=== PATIENT | male | born 1950 | race American Indian/Alaskan Native ===

== ENCOUNTER 2019-05-28 12:57 | Outpatient (CLI) | payer MEDICARE ==
--- NOTE | 2019-05-28 18:44 | Vascular Lab Report ---
DUPLEX DOPPLER LOWER EXTREMITY VEINS, BILATERAL INDICATION / CLINICAL INFORMATION: B FOOT/LEG SWELLING. TECHNIQUE: Duplex doppler imaging was performed through the veins of both lower extremities using venous sole jennie and other maneuvers. COMPARISON: None available. FINDINGS: Right Common Femoral vein: Negative. Right Femoral vein: Negative. Right Popliteal vein: Negative. Right Calf veins: Negative. Left Common Femoral vein: Negative. Left Femoral vein: Negative. Left Popliteal vein: Negative. Left Calf veins: Negative. Additional findings: None. IMPRESSION: No sonographic evidence for DVT in either lower extremity. Signer Name: Richy Bajwa MD Signed: 05/28/2019 6:40 PM Workstation Name: [id number]
--- NOTE | 2019-05-28 19:54 | Vascular Lab Report ---
ULTRASOUND LOWER EXTREMITY ARTERIAL DOPPLER BILATERAL INDICATION: Bilateral feet and leg swelling and pain. COMPARISON: None. FINDINGS: Right Leg: Arteries of the right lower extremity are patent. Normal multiphasic waveforms are presen t. Arterial Systolic Velocities (cm/sec): MILK TESTER = 97 SFA proximal = 93 SFA mid = 93 SFA distal = 67 Popliteal = 50 Posterior tibial = 154 Dorsalis pedis = 38 Left Leg: Arteries of the right lower extremity are patent. Normal multiphasic waveforms are presen t. Arterial Systolic Velocities (cm/sec): MILK TESTER = 85 SFA proximal = 118 SFA mid = 96 SFA distal = 74 Popliteal = 59 Posterior tibial = 75 Dorsalis pedis = 81 IMPRESSION: 1. No hemodynamically significant arterial stenosis in either lower extremity. Signer Name: Charla Bhat MD Signed: 05/28/2019 7:50 PM Workstation Name: [id number]
== END 2019-05-28 12:58 | disposition home or self-care (01) ==
LOC: VAS 12:57
PROVIDERS: ATTEND Internal Medicine
DX: R60.0 Localized edema (principal)
CPT/HCPCS: 93925; 93970

== ENCOUNTER 2019-12-03 13:49 | Outpatient (CLI) | payer MEDICARE ==
[2019-12-03 14:54] LABS: Hematocrit 35.6 % (35.5-45.6); Hemoglobin 11.8 gm/dl (11.8-15.2); Mean Corpuscular HGB Conc 33 % (32-34); Mean Corpuscular Volume 91 fl (84-94); Platelet Count 227 K/mm3 (140-440); Red Blood Count 3.91 M/mm3 (3.65-5.03); Red Cell Distribution Width 13.7 % (13.2-15.2)
[2019-12-03 14:58] LABS: Alanine Aminotransferase 11 units/L (7-56); Albumin 4.2 g/dL (3.9-5); BUN/Creatinine Ratio 11; Blood Urea Nitrogen 11 mg/dL (9-20); Calcium 9.5 mg/dL (8.4-10.2); Hemolysis Index 1
== END 2019-12-03 13:50 | disposition home or self-care (01) ==
LOC: LAB 13:49
PROVIDERS: ATTEND Specialist
DX: E11.42 Type 2 diabetes mellitus with diabetic polyneuropathy (principal); G62.9 Polyneuropathy, unspecified; G95.9 Disease of spinal cord, unspecified
CPT/HCPCS: 36415; 80053; 82306; 82607; 83921; 84443; 85027; 86592; 86593; 86780

== ENCOUNTER 2021-08-08 21:29 | Emergency (ER) | payer MEDICARE, BC ==
[2021-08-08] MEDS ORDERED: MIDAZOLAM 2 MG/2 ML INJ IV ONE (22:42)
--- NOTE | 2021-08-08 22:46 | Emergency Department Report ---
ED General Adult HPI - General Chief complaint: Neuro Symptoms/Deficit Stated complaint: medical clearance Time Seen by Provider: 08/08/21 22:23 Source: patient, EMS ( EMS documentation not available at time of chart dictation ), RN notes reviewed, old records reviewed Mode of arrival: Stretcher Limitations: Other (Patient is awake but not speaking to myself.) - History of Present Illness Initial comments: This patient is a 70-year-old gentleman. His primary care doctor is Dr. Martinez. He is currently a full CODE STATUS, and has a history of diabetes, and possible psychiatric disease. His usual mental status is documented as being alert, disoriented, but cannot follow simple commands. In terms of his activities of daily living, he requires assistance with bathing, dressing, toileting, and eating. He is reportedly independent to transfer. He is also documented as being incontinent of bladder and bowel function. He is not currently on enteral tube feeds. The patient is referred to the emergency room because he is awake, having chronic tremors, but not talking. In the emergency room, the patient is awake, but will not talk to me. The patient follows commands. The patient makes no indication that he is having any physical pain at this time. Current medications include Risperdal, and melatonin. The patient does not describe the qualitative nature of his symptoms, exacerbating factors relieving factors or aggravating factors. The patient is not currently accompanied by friends or family at this time for collateral information. called up [facility], and spoke to RN Monty [phone] she states patient is new to her facility for the past 3-4 days. the patient apparently has developed new onset tremors and has stopped speaking. family called residential and indicated that patient is supposed to be on a number of psychiatric medications, but the [facility] is not able to provide me a list of medications. 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 He further reports that this patient's medications were changed, but he does not know which medications were started. He further stated to the nursing care team as the patient is residential that if the patient was not resumed on his psychiatric medications, that he would likely have a psychiatric decompensation. He will attempt to send me the patient's list of prior medications prior to going to [facility] prior medications include: citalopram 20 mg q day januvia 100 mg q day valproic acid 500 mg bid buproprion 300 mg q day bentropine 1 mg qhs risperdal 3 mg qhs gabapentin 800 mg qhs -: unknown - Related Data Allergies Allergy/AdvReac Type Severity Reaction Status Date / Time No Known Allergies Allergy Unverified 05/28/19 12:57 ED Review of Systems ROS: Stated complaint: AMS Other details as noted in HPI Comment: Unobtainable due to pts medical conditions ED Physical Exam - General Limitations: Other (Patient is awake but not talk) General appearance: in no apparent distress - Head Head exam: Present: atraumatic, normocephalic - Eye Eye exam: Present: normal appearance, PERRL, EOMI - ENT ENT exam: Present: normal exam, normal orophraynx, mucous membranes moist, normal external ear exam - Neck Neck exam: Present: normal inspection, full ROM. Absent: tenderness, meningismus - Respiratory Respiratory exam: Present: normal lung sounds bilaterally. Absent: respiratory distress, wheezes, rales, rhonchi, stridor, decreased breath sounds - Cardiovascular Cardiovascular Exam: Present: regular rate, normal rhythm, normal heart sounds. Absent: bradycardia, tachycardia, irregular rhythm, systolic murmur, diastolic murmur, rubs, gallop - GI/Abdominal GI/Abdominal exam: Present: soft. Absent: distended, tenderness, guarding, rebound, rigid, pulsatile mass - Rectal Rectal exam: Present: deferred - Extremities Exam Extremities exam: Present: normal inspection, full ROM, pedal edema (1+ edema in the bilateral lower extremities. Chronic venous stasis changes noted.), other (2+ pulses noted in the bilateral upper and lower extremities. There is no palpable cord. negative Homans sign. Muscular compartments are soft. The pelvis is stable.). Absent: calf tenderness - Back Exam Back exam: Present: normal inspection - Neurological Exam Neurological exam: Present: alert, other (There is no facial droop. EOMI. Active tremors are noted. No seizures are noted.) - Psychiatric Psychiatric exam: Present: other (Patient is nonverbal) - Skin Skin exam: Present: warm, dry, intact, normal color. Absent: rash ED Course Vital Signs 08/08/21 08/08/21 08/08/21 22:05 22:16 22:30 Temperature 98.5 F Pulse Rate 94 H 92 H 90 Respiratory 13 16 10 L Rate Blood Pressure 158/57 158/57 Blood Pressure 171/58 [Left] O2 Sat by Pulse 96 100 100 Oximetry 08/08/21 08/08/21 08/08/21 22:46 23:00 23:31 Temperature Pulse Rate 89 81 Respiratory 17 11 L Rate Blood Pressure 175/67 141/78 141/78 Blood Pressure [Left] O2 Sat by Pulse 100 97 100 Oximetry 08/08/21 08/09/21 08/09/21 23:46 00:00 00:16 Temperature Pulse Rate 78 Respiratory 12 Rate Blood Pressure 141/78 141/78 141/78 Blood Pressure [Left] O2 Sat by Pulse 100 100 100 Oximetry 08/09/21 08/09/21 00:30 00:46 Temperature Pulse Rate 78 74 Respiratory 14 15 Rate Blood Pressure 141/78 141/78 Blood Pressure [Left] O2 Sat by Pulse 100 100 Oximetry - Reevaluation(s) Reevaluation #1: 08/08/21 23:51 Differential diagnosis, including not limited to: Dementia with psychotic features, intracranial hemorrhage, pneumonia, thyroid derangement, electrolyte derangement Assessment and plan: 70-year-old gentleman, who was afebrile, with reassuring vital signs, with tremors, not actively vomiting, moving 4 extremities, 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 Laboratory studies are nonactionable. EKG, chest x-ray, urinalysis unremarkable. Probably awaiting psychiatric consultation. COVID swab ordered i n anticipation of psychiatric placement and disposition. Currently awaiting for brother to transmits pre-[facility] medications. At this point in time, this patient does not appear to have an immediate medical contraindication to psychiatric admission, evaluation, consultation and placement. Reevaluation #2: 08/09/21 02:03 Resting comfortably in stretcher. No acute distress. ED Medical Decision Making - Lab Data Result diagrams: 08/08/21 23:00 08/08/21 23:00 Vital Signs 08/08/21 22:05 Temperature 98.5 F Pulse Rate 94 H Respiratory 13 Rate Blood Pressure 171/58 [Left] O2 Sat by Pulse 96 Oximetry Lab Results 08/08/21 08/08/21 08/08/21 Range/Units 23:00 23:00 23:00 WBC 4.5 (4.5-11.0) K/mm3 RBC 3.50 L (3.65-5.03) M/mm3 Hgb 10.1 L (11.8-15.2) gm/dl Hct 30.6 L (35.5-45.6) % MCV 87 (84-94) fl MCH 29 (28-32) pg MCHC 33 (32-34) % RDW 14.6 (13.2-15.2) % Plt Count 420 (140-440) K/mm3 PT 13.3 (12.2-14.9) Sec. INR 0.92 (0.87-1.13) Urine Bilirubin (Negative) Urine RBC (Auto) (0.0-6.0) /HPF Plasma/Serum Alcohol < 0.01 (0-0.07) % 08/08/21 Range/Units Unknown WBC (4.5-11.0) K/mm3 RBC (3.65-5.03) M/mm3 Hgb (11.8-15.2) gm/dl Hct (35.5-45.6) % MCV (84-94) fl MCH (28-32) pg MCHC (32-34) % RDW (13.2-15.2) % Plt Count (140-440) K/mm3 PT (12.2-14.9) Sec. INR (0.87-1.13) Urine Bilirubin Neg (Negative) Urine RBC (Auto) < 1.0 (0.0-6.0) /HPF Plasma/Serum Alcohol (0-0.07) % Lab Results 08/08/21 08/08/21 08/08/21 Range/Units 23:00 23:00 23:00 WBC 4.5 (4.5-11.0) K/mm3 RBC 3.50 L (3.65-5.03) M/mm3 Hgb 10.1 L (11.8-15.2) gm/dl Hct 30.6 L (35.5-45.6) % MCV 87 (84-94) fl MCH 29 (28-32) pg MCHC 33 (32-34) % RDW 14.6 (13.2-15.2) % Plt Count 420 (140-440) K/mm3 PT 13.3 (12.2-14.9) Sec. INR 0.92 (0.87-1.13) Sodium 133 L (137-145) mmol/L Potassium 4.0 (3.6-5.0) mmol/L Chloride 96.4 L (98-107) mmol/L Carbon Dioxide 25 (22-30) mmol/L Anion Gap 16 mmol/L BUN 13 (9-20) mg/dL Creatinine 0.8 (0.8-1.3) mg/dL Estimated GFR > 60 ml/min BUN/Creatinine Ratio 16 % Glucose 154 H (75-100) mg/dL Calcium 9.0 (8.4-10.2) mg/dL Magnesium 1.90 (1.7-2.3) mg/dL Total Bilirubin 0.30 (0.1-1.2) mg/dL AST 16 (5-40) units/L ALT 16 (7-56) units/L Alkaline Phosphatase 93 (35-129) units/L Ammonia (25-60) umol/L Total Creatine Kinase 96 (55-170) units/L Troponin T < 0.010 (0.00-0.029) ng/mL Total Protein 7.0 (6.3-8.2) g/dL Albumin 3.9 (3.9-5) g/dL Albumin/Globulin Ratio 1.3 % TSH (0.270-4.200) mlU/mL Urine Color (Yellow) Urine Turbidity (Clear) Urine pH (5.0-7.0) Ur Specific [place] (1.003-1.030) Urine Protein (Negative) mg/dL Urine Glucose (UA) (Negative) mg/dL Urine Ketones (Negative) mg/dL Urine Blood (Negative) Urine Nitrite (Negative) Urine Bilirubin (Negative) Urine Urobilinogen (<2.0) mg/dL Ur Leukocyte Esterase (Negative) Urine WBC (Auto) (0.0-6.0) /HPF Urine RBC (Auto) (0.0-6.0) /HPF Salicylates (2.8-20.0) mg/dL Urine Opiates Screen Urine Methadone Screen Acetaminophen (10.0-30.0) ug/mL Ur Barbiturates Screen Ur Phencyclidine Scrn Ur Amphetamines Screen U Benzodiazepines Scrn Urine Cocaine Screen U Marijuana (THC) Screen Drugs of Abuse Note Plasma/Serum Alcohol (0-0.07) % Blood Type 08/08/21 08/08/21 08/08/21 Range/Units 23:00 23:00 23:00 WBC (4.5-11.0) K/mm3 RBC (3.65-5.03) M/mm3 Hgb (11.8-15.2) gm/dl Hct (35.5-45.6) % MCV (84-94) fl MCH (28-32) pg MCHC (32-34) % RDW (13.2-15.2) % Plt Count (140-440) K/mm3 PT (12.2-14.9) Sec. INR (0.87-1.13) Sodium (137-145) mmol/L Potassium (3.6-5.0) mmol/L Chloride (98-107) mmol/L Carbon Dioxide (22-30) mmol/L Anion Gap mmol/L BUN (9-20) mg/dL Creatinine (0.8-1.3) mg/dL Estimated GFR ml/min BUN/Creatinine Ratio % Glucose (75-100) mg/dL Calcium (8.4-10.2) mg/dL Magnesium (1.7-2.3) mg/dL Total Bilirubin (0.1-1.2) mg/dL AST (5-40) units/L ALT (7-56) units/L Alkaline Phosphatase (35-129) units/L Ammonia 26.0 (25-60) umol/L Total Creatine Kinase (55-170) units/L Troponin T (0.00-0.029) ng/mL Total Protein (6.3-8.2) g/dL Albumin (3.9-5) g/dL Albumin/Globulin Ratio % TSH 2.560 (0.270-4.200) mlU/mL Urine Color (Yellow) Urine Turbidity (Clear) Urine pH (5.0-7.0) Ur Specific [place] (1.003-1.030) Urine Protein (Negative) mg/dL Urine Glucose (UA) (Negative) mg/dL Urine Ketones (Negative) mg/dL Urine Blood (Negative) Urine Nitrite (Negative) Urine Bilirubin (Negative) Urine Urobilinogen (<2.0) mg/dL Ur Leukocyte Esterase (Negative) Urine WBC (Auto) (0.0-6.0) /HPF Urine RBC (Auto) (0.0-6.0) /HPF Salicylates < 0.3 L (2.8-20.0) mg/dL Urine Opiates Screen Urine Methadone Screen Acetaminophen (10.0-30.0) ug/mL Ur Barbiturates Screen Ur Phencyclidine Scrn Ur Amphetamines Screen U Benzodiazepines Scrn Urine Cocaine Screen U Marijuana (THC) Screen Drugs of Abuse Note Plasma/Serum Alcohol (0-0.07) % Blood Type 08/08/21 08/08/21 08/08/21 Range/Units 23:00 23:00 23:00 WBC (4.5-11.0) K/mm3 RBC (3.65-5.03) M/mm3 Hgb (11.8-15.2) gm/dl Hct (35.5-45.6) % MCV (84-94) fl MCH (28-32) pg MCHC (32-34) % RDW (13.2-15.2) % Plt Count (140-440) K/mm3 PT (12.2-14.9) Sec. INR (0.87-1.13) Sodium (137-145) mmol/L Potassium (3.6-5.0) mmol/L Chloride (98-107) mmol/L Carbon Dioxide (22-30) mmol/L Anion Gap mmol/L BUN (9-20) mg/dL Creatinine (0.8-1.3) mg/dL Estimated GFR ml/min BUN/Creatinine Ratio % Glucose (75-100) mg/dL Calcium (8.4-10.2) mg/dL Magnesium (1.7-2.3) mg/dL Total Bilirubin (0.1-1.2) mg/dL AST (5-40) units/L ALT (7-56) units/L Alkaline Phosphatase (35-129) units/L Ammonia (25-60) umol/L Total Creatine Kinase (55-170) units/L Troponin T (0.00-0.029) ng/mL Total Protein (6.3-8.2) g/dL Albumin (3.9-5) g/dL Albumin/Globulin Ratio % TSH (0.270-4.200) mlU/mL Urine Color (Yellow) Urine Turbidity (Clear) Urine pH (5.0-7.0) Ur Specific [place] (1.003-1.030) Urine Protein (Negative) mg/dL Urine Glucose (UA) (Negative) mg/dL Urine Ketones (Negative) mg/dL Urine Blood (Negative) Urine Nitrite (Negative) Urine Bilirubin (Negative) Urine Urobilinogen (<2.0) mg/dL Ur Leukocyte Esterase (Negative) Urine WBC (Auto) (0.0-6.0) /HPF Urine RBC (Auto) (0.0-6.0) /HPF Salicylates (2.8-20.0) mg/dL Urine Opiates Screen Urine Methadone Screen Acetaminophen 5.0 L (10.0-30.0) ug/mL Ur Barbiturates Screen Ur Phencyclidine Scrn Ur Amphetamines Screen U Benzodiazepines Scrn Urine Cocaine Screen U Marijuana (THC) Screen Drugs of Abuse Note Plasma/Serum Alcohol < 0.01 (0-0.07) % Blood Type A POSITIVE 08/08/21 08/08/21 Range/Units Unknown Unknown WBC (4.5-11.0) K/mm3 RBC (3.65-5.03) M/mm3 Hgb (11.8-15.2) gm/dl Hct (35.5-45.6) % MCV (84-94) fl MCH (28-32) pg MCHC (32-34) % RDW (13.2-15.2) % Plt Count (140-440) K/mm3 PT (12.2-14.9) Sec. INR (0.87-1.13) Sodium (137-145) mmol/L Potassium (3.6-5.0) mmol/L Chloride (98-107) mmol/L Carbon Dioxide (22-30) mmol/L Anion Gap mmol/L BUN (9-20) mg/dL Creatinine (0.8-1.3) mg/dL Estimated GFR ml/min BUN/Creatinine Ratio % Glucose (75-100) mg/dL Calcium (8.4-10.2) mg/dL Magnesium (1.7-2.3) mg/dL Total Bilirubin (0.1-1.2) mg/dL AST (5-40) units/L ALT (7-56) units/L Alkaline Phosphatase (35-129) units/L Ammonia (25-60) umol/L Total Creatine Kinase (55-170) units/L Troponin T (0.00-0.029) ng/mL Total Protein (6.3-8.2) g/dL Albumin (3.9-5) g/dL Albumin/Globulin Ratio % TSH (0.270-4.200) mlU/mL Urine Color Straw (Yellow) Urine Turbidity Clear (Clear) Urine pH 6.0 (5.0-7.0) Ur Specific [place] 1.008 (1.003-1.030) Urine Protein <15 mg/dl (Negative) mg/dL Urine Glucose (UA) Neg (Negative) mg/dL Urine Ketones Neg (Negative) mg/dL Urine Blood Neg (Negative) Urine Nitrite Neg (Negative) Urine Bilirubin Neg (Negative) Urine Urobilinogen < 2.0 (<2.0) mg/dL Ur Leukocyte Esterase Neg (Negative) Urine WBC (Auto) 1.0 (0.0-6.0) /HPF Urine RBC (Auto) < 1.0 (0.0-6.0) /HPF Salicylates (2.8-20.0) mg/dL Urine Opiates Screen Presumptive negative Urine Methadone Screen Presumptive negative Acetaminophen (10.0-30.0) ug/mL Ur Barbiturates Screen Presumptive negative Ur Phencyclidine Scrn Presumptive negative Ur Amphetamines Screen Presumptive negative U Benzodiazepines Scrn Presumptive negative Urine Cocaine Screen Presumptive negative U Marijuana (THC) Screen Presumptive negative Drugs of Abuse Note Disclamer Plasma/Serum Alcohol (0-0.07) % Blood Type - EKG Data -: EKG Interpreted by Ms - EKG Data 08/08/21 23:35 The EKG is interpreted 22: 59 Sinus rhythm, 81 bpm. Normal axis, normal P wave axis, minimal motion artifact, QTC is 4 4 6 ms. This is an abnormal EKG. This is not a STEMI - Radiology Data Radiology results: pending, report reviewed, image reviewed CHEST 1 VIEW INDICATION / CLINICAL INFORMATION: Altered Mental Status. COMPARISON: None available. FINDINGS: SUPPORT DEVICES: None. HEART / MEDIASTINUM: No significant abnormality. LUNGS / PLEURA: No significant pulmonary or pleural abnormality. BONES: No significant osseous abnormality. ADDITIONAL FINDINGS: No significant additional findings. IMPRESSION: 1. No active cardiopulmonary disease. Signer Name: Gurwinder Boone II, MD Signed: 08/08/2021 10:15 PM Workstation Name: [id number] CT HEAD WITHOUT CONTRAST INDICATION / CLINICAL INFORMATION: Altered Mental Status. TECHNIQUE: CT head was performed without administration of intravenous contrast. All CT scans at this location are performed using CT dose reduction fo r ALARA by means of automated exposure control. COMPARISON: None available. FINDINGS: CEREBRAL HEMISPHERES: Significant motion artifact is present. Allowing for motion, there is no evidence of acute intracranial hemorrhage or infarction. Ventricles are within normal limits for the degree of atrophy. The lateral regions of periventricular white matter hypoattenuation compatible with microvascular ischemia are demonstrated. Basal cisterns are patent. HEMORRHAGE: None. CEREBELLUM / BRAINSTEM: No significant abnormality. ORBITS: No significant abnormality. SOFT TISSUES: No significant abnormality. SKULL: No significant abnormality. PARANASAL SINUSES / MASTOID AIR CELLS: Normal as visualized. ADDITIONAL FINDINGS: None. IMPRESSION: 1. Senescent changes without evidence of superimposed acute pathology. Note is made of moderate motion artifact. Signer Name: Gurwinder Boone II, MD Signed: 08/08/2021 10:41 PM Workstation Name: [id number] Critical care attestation.: If time is entered above; I have spent that time in minutes in the direct care of this critically ill patient, excluding procedure time. ED Disposition Clinical Impression: Medical clearance for psychiatric admission, Occasional tremors Disposition: [address] [place] [address] Is pt being admited?: No Does the pt Need Aspirin: No Condition: Good Referrals: MARILUZ MARTINEZ MD [Primary Care Provider] - 3-5 Days
[2021-08-08 23:17] LABS: Hematocrit 30.6 % (35.5-45.6); Hemoglobin 10.1 gm/dl (11.8-15.2); Mean Corpuscular HGB Conc 33 % (32-34); Mean Corpuscular Volume 87 fl (84-94); Platelet Count 420 K/mm3 (140-440); Red Cell Distribution Width 14.6 % (13.2-15.2)
--- NOTE | 2021-08-08 23:20 | XRay Report ---
CHEST 1 VIEW INDICATION / CLINICAL INFORMATION: Altered Mental Status. COMPARISON: None available. FINDINGS: SUPPORT DEVICES: None. HEART / MEDIASTINUM: No significant abnormality. LUNGS / PLEURA: No significant pulmonary or pleural abnormality. BONES: No significant osseous abnormality. ADDITIONAL FINDINGS: No significant additional findings. IMPRESSION: 1. No active cardiopulmonary disease. Signer Name: Gurwinder Boone II, MD Signed: 08/08/2021 11:15 PM Workstation Name: [id number]
[2021-08-08 23:26] LABS: INR 0.92 (0.87-1.13)
[2021-08-08 23:33] LABS: Bilirubin,Urine NEG (Negative); Blood,Urine NEG (Negative); Color,Urine Straw (Yellow); Protein,Urine <15 mg/dL mg/dL (Negative); RBC,Urine < 1.0 /HPF (0.0-6.0); Urobilinogen,Urine < 2.0 mg/dL (<2.0)
[2021-08-08 23:39] LABS: Alanine Aminotransferase 16 units/L (7-56); Albumin 3.9 g/dL (3.9-5); BUN/Creatinine Ratio 16; Blood Urea Nitrogen 13 mg/dL (9-20); Hemolysis Index 0
[2021-08-08 23:40] LABS: Amphetamine Screen,Urine PRESUMPTIVE NEGATIVE; Benzodiazepines Screen,Urine PRESUMPTIVE NEGATIVE; Cannabinoid Screen,Urine PRESUMPTIVE NEGATIVE; Cocaine Screen,Urine PRESUMPTIVE NEGATIVE; Methadone Screen,Urine PRESUMPTIVE NEGATIVE; Opiate Screen,Urine PRESUMPTIVE NEGATIVE
--- NOTE | 2021-08-08 23:46 | Cat Scan Report ---
CT HEAD WITHOUT CONTRAST INDICATION / CLINICAL INFORMATION: Altered Mental Status. TECHNIQUE: CT head was performed without administration of intravenous contrast. All CT scans at this location are performed using CT dose reduction for ALARA by means of automated exposure control. COMPARISON: None available. FINDINGS: CEREBRAL HEMISPHERES: Significant motion artifact is present. Allowing for motion, there is no eviden ce of acute intracranial hemorrhage or infarction. Ventricles are within normal limits for the degree of atrophy. The lateral regions of periventricular white matter hypoattenuation compatible with micr ovascular ischemia are demonstrated. Basal cisterns are patent. HEMORRHAGE: None. CEREBELLUM / BRAINSTEM: No significant abnormality. ORBITS: No significant abnormality. SOFT TISSUES: No significant abnormality. SKULL: No significant abnormality. PARANASAL SINUSES / MASTOID AIR CELLS: Normal as visualized. ADDITIONAL FINDINGS: None. IMPRESSION: 1. Senescent changes without evidence of superimposed acute pathology. Note is made of moderate motio n artifact. Signer Name: Gurwinder Boone II, MD Signed: 08/08/2021 11:41 PM Workstation Name: [id number]
--- NOTE | 2021-08-09 11:02 | Electrocardiograph Report ---
[facility] Test Date: 2021-08-08 Test Time: 22:59:09 Pat Name: MARGE KAT Department: Room: Gender: M Perfusionist: LEONCIO : 1950 Requested By: BRANDAN GONZALEZ Order Number: [id number] Reading MD: Alcides Lopez Measurements Intervals Isabel Rate: 81 P: 17 IL: 150 QRS: 87 QRSD: 112 T: 15 QT: 384 QTc: 446 Interpretive Statements Sinus rhythm No previous ECG available for comparison Electronically Signed On 08-09-2021 11:01:26 EDT by Alcides Lopez
--- NOTE | 2021-08-09 14:09 | Consultation ---
History of Present Illness - Reason for Consult Consult date: 08/09/21 Reason for consult: AMS - History of Present Psychiatric Illness The patient is a 70 year old male with history of schizophrenia. In my encounter with the patient, he is present with tremors, alert and oriented x2. The patient states he came to the ED because he is developing " declining reasoning, it's off track." The patient endorses being depressed and intermittent hallucinations. The patient denies any current suicidal /homicidal ideation and denies having hallucinations today. Called [facility], at [phone] and was told that the patient was discharged yesterday 08/08 PSYCHIATRIC HISTORY: Diagnoses: Schizophrenia Suicide attempts or Self-harm behavior:Denies Prior psychiatric hospitalizations: Yes Substance Abuse history: Alcohol Previous psychiatric medications tried: Denies Outpatient treatment: Denies PAST MEDICAL HISTORY: None reported or document Family Psychiatric History: None reported or documented SOCIAL HISTORY Marital Status:Single Living Arrangements: Lives in a senior care Employment Status: unemployed Access to guns/weapons: Denies Education: College History of Abuse: Denies Legal History: unknown REVIEW OF SYSTEMS Constitutional: Negative for weight loss ENT: Negative for stridor Respiratory: Negative for cough or hemoptysis All other systems reviewed and are negative MENTAL STATUS EXAMINATION General Appearance and Behavior: Age appropriate, good hygiene, wearing appropriate clothes. calm, cooperative Cooperation: Cooperative Psychomotor Behavior: Psychomotor normal Mood: depressed Affect and affective range: Congruent with stated mood Thought Process: Goal directed Thought Content: Reality oriented Speech: normal tone and pace Suicidal Ideation: Denies Homicidal Ideation:Denies Hallucinations: Denies Delusions: None elicited Impulse Control: limited Insight and Judgment: Limited Memory: Limited Attention: attentive Orientation: a/ox2 Assessment (1)Hx of Schizophrenia Current Visit: Yes Status: Acute Treatment Plan Case management Continue Home medications. Risks, benefits and alternatives of medications discussed with the patient, questions answered and consent obtained from patient. PSYCHOTHERAPY: Supportive psychotherapy provided MEDICAL: Per primary team DELIRIUM PRECAUTIONS: Please re-orient patient frequently, keep lights on during the day, and minimize benzodiazepines and opiates as these medications could worsen patient's confusion. ADJUNCT MATHEMATICS INSTRUCTOR: Defer to primary DISPOSITION: Do not recommend acute inpatient psychiatric hospitalization at this time. Employment Clerk will provide patient with psychiatric outpatient resources. FOLLOW-UP: Will sign off. Thanks [facility] staffed with Dr. Lara Medications and Allergies Allergies Allergy/AdvReac Type Severity Reaction Status Date / Time No Known Allergies Allergy Unverified 05/28/19 12:57 Mental Status Exam - Vital signs Last Vital Signs Temp 98.5 F 08/08/21 22:05 Pulse 71 08/09/21 05:46 Resp 16 08/09/21 05:46 BP 141/78 08/09/21 05:46 Pulse Ox 100 08/09/21 05:46 Results Result Diagrams: 08/08/21 23:00 08/08/21 23:00 Abnormal lab results 08/08/21 08/08/21 08/08/21 Range/Units 23:00 23:00 23:00 RBC 3.50 L (3.65-5.03) M/mm3 Hgb 10.1 L (11.8-15.2) gm/dl Hct 30.6 L (35.5-45.6) % Sodium 133 L (137-145) mmol/L Chloride 96.4 L (98-107) mmol/L Glucose 154 H (75-100) mg/dL Salicylates < 0.3 L (2.8-20.0) mg/dL Acetaminophen (10.0-30.0) ug/mL Valproic Acid (50-100) ug/mL 08/08/21 08/09/21 Range/Units 23:00 00:00 RBC (3.65-5.03) M/mm3 Hgb (11.8-15.2) gm/dl Hct (35.5-45.6) % Sodium (137-145) mmol/L Chloride (98-107) mmol/L Glucose (75-100) mg/dL Salicylates (2.8-20.0) mg/dL Acetaminophen 5.0 L (10.0-30.0) ug/mL Valproic Acid < 2.8 L (50-100) ug/mL All other labs normal.
[2021-08-09 16:54] VITALS: BP 137/87
== END 2021-08-09 17:05 ==
LOC: ED 21:29
DX: Z13.30 Encounter for screening examination for mental health and behavioral disorders, unspecified (principal); R25.1 Tremor, unspecified; Z20.822 Contact with and (suspected) exposure to COVID-19
CPT/HCPCS: 36415; 70450; 71045; 80053; 80164; 80307; 81001; 82140; 82550; 83735; 84443; 84484; 85027; 85610; 86850; 86900; 86901; 87086; 93005; 96374; 99285; J2250; U0003; 80320; G0480